=== PATIENT | male | born 2000 | race Caucasian/White ===

== ENCOUNTER 2024-06-28 17:29 | Emergency (ER) | payer OTHER, SELFPAY ==
[2024-06-28 17:37] VITALS: BP 131/75; PULSE 67; RESP 14; TEMP 36.5; O2SAT 99; BMI 18.8
--- NOTE | 2024-06-28 17:40 | ED.ABDPAIN ---
HPI - Abdominal Pain <Shefali Willoughby PA-C - Last Filed: 06/28/24 19:36> General Chief Complaint: Abdominal Pain Stated Complaint: abd px x14 days Time Seen by Provider: 06/28/24 17:40 Source: patient Mode of arrival: Ambulatory History of Present Illness HPI narrative: Rafael Leach is a pleasant 23 yo M active [employer] with a PMHx of appendectomy who presents to the ED for abdominal pain and nausea x 2.5 weeks. 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 States since then he has had occasional acid reflux, improved with antiacids. He had H Pylori testing done at an urgent care that was negative[place] but advised coming to ED if abdominal pain worsens. States his abd pain worsening today. For 2.5 weeks he had primarily epigastric abd pain worsened by eating and drinking, today he has intermittent sharp pains all over his abdomen and flanks. 2.5 weeks of constant nausea, bloating, fullness. Normal brown solid BM everyday. No vomiting, fevers, chills, dysuria, diarrhea, constipation, hematuria, cough, SOB. He was advised that the antiacids he was taking could have caused a false positive H pylori test so he has not taken any, now with continuing acid reflux and esophageal burning. No meds today. Reports allergies to naproxen, not other nsaids. 7-8 year vape history stopped 8 days ago. Social ETOH. No drugs. Related Data Previous Rx's Medication Instructions Recorded ondansetron 4 mg disintegrating 4 mg PO Q8H PRN nausea and 06/28/24 tablet vomiting #14 tabs pantoprazole 20 mg tablet,delayed 20 mg PO DAILY 4 weeks #30 tabs 06/28/24 release (Protonix) Allergies Allergy/AdvReac Type Severity Reaction Status Date / Time naproxen Allergy Verified 06/28/24 17:37 Review of Systems <Shefali Willoughby PA-C - Last Filed: 06/28/24 19:36> Review of Systems ROS Unobtainable: All systems reviewed & are unremarkable except as noted in HPI and below Patient History <Shefali Willoughby PA-C - Last Filed: 06/28/24 19:36> Social History Smoking Status: Former smoker Smoking Status: Former smoker Exam <Shefali Willoughby PA-C - Last Filed: 06/28/24 19:36> Initial Vital Signs Initial Vital Signs: Vital Signs Temperature 97.7 F 06/28/24 17:37 Pulse Rate 67 06/28/24 17:37 Respiratory Rate 14 06/28/24 17:37 Blood Pressure 131/75 06/28/24 17:37 Pulse Oximetry 99 06/28/24 17:37 Oxygen Delivery Method Room Air 06/28/24 17:37 Const General: cooperative, healthy appearing, comfortable and No acute distress HENMT Head: normal to inspection and normocephalic Eyes General: Yes appearance normal, both eyes and all related structures Neck Neck: normal visual inspection and full ROM Chest Chest: normal inspection of the chest Resp Effort & Inspection: normal respiratory effort, able to speak in complete sentences, no audible wheezes, no cough, no respiratory distress and no use of accessory muscles Cardio Rate: regular rate Rhythm: regular rhythm GI Inspection: normal to inspection Palpation: soft, No guarding and tender (epigastric region) Auscultation: normal bowel sounds Other: epigastric abd tenderness with no rebound or guarding. Prior appendectomy surgical scars. Back/Spine/Pelvis Other: No CVA tenderness Skin General: no rashes or lesions noted Neuro General: patient alert, patient awake and patient oriented x3 <Lizeth Hays MD - Last Filed: 06/28/24 21:37> Initial Vital Signs Initial Vital Signs: Vital Signs Temperature 97.7 F 06/28/24 17:37 Pulse Rate 67 06/28/24 17:37 Respiratory Rate 14 06/28/24 17:37 Blood Pressure 131/75 06/28/24 17:37 Pulse Oximetry 99 06/28/24 17:37 Oxygen Delivery Method Room Air 06/28/24 17:37 Course <Shefali Willoughby PA-C - Last Filed: 06/28/24 19:36> Orders Ordered: ED Orders 06/28/24 17:55 CT abdomen pelvis w con Stat 06/28/24 18:25 Complete Blood Count AUTO DIFF Stat Comprehensive Metabolic Panel Stat Lipase Stat Discontinued Medications Al Hydrox/Mg Hydrox/Simethicone 20 ml/ Lidocaine HCl 15 ml 0 ml PO NOW ONE Stop: 06/28/24 17:55 Last Admin: 06/28/24 19:01 Dose: 35 ml Documented By: SPF Vital Signs Vital signs: Vital Signs - 8 hr 06/28/24 17:37 06/28/24 19:34 Temperature 97.7 F 97.7 F Pulse Rate 67 53 L Respiratory Rate 14 16 Blood Pressure 131/75 126/83 Pulse Oximetry 99 100 Oxygen Delivery Method Room Air Room Air <Lizeth Hays MD - Last Filed: 06/28/24 21:37> Orders Ordered: ED Orders 06/28/24 17:55 CT abdomen pelvis w con Stat 06/28/24 18:25 Complete Blood Count AUTO DIFF Stat Comprehensive Metabolic Panel Stat Lipase Stat Discontinued Medications Al Hydrox/Mg Hydrox/Simethicone 20 ml/ Lidocaine HCl 15 ml 0 ml PO NOW ONE Stop: 06/28/24 17:55 Last Admin: 06/28/24 19:01 Dose: 35 ml Documented By: SPF Vital Signs Vital signs: Vital Signs - 8 hr 06/28/24 17:37 06/28/24 19:34 Temperature 97.7 F 97.7 F Pulse Rate 67 53 L Respiratory Rate 14 16 Blood Pressure 131/75 126/83 Pulse Oximetry 99 100 Oxygen Delivery Method Room Air Room Air MDM - Abdominal Pain <Shefali Willoughby PA-C - Last Filed: 06/28/24 19:36> Medical Records Attestation: I reviewed the patient's medical records. Lab Data 06/28/24 18:25 06/28/24 18:25 Labs: Lab Results 06/28/24 Range/Units 18:25 WBC 4.7 (4.5-11.0) X10^3/uL RBC 5.03 (4.5-5.9) X10^6/uL Hgb 15.3 (13.5-17.5) g/dL Hct 44.6 (41-53) % MCV 88.7 (80-100) fL MCH 30.5 (26-34) PG MCHC 34.3 (30-36) % RDW 13.5 (11.6-14.8) % Plt Count 200 (150-400) X10^3/uL Neut % (Auto) 56.8 (50-75) % Lymph % (Auto) 34.4 (25-40) % Elbert % (Auto) 7.3 (3-14) % Eos % (Auto) 0.9 L (2-4) % Baso % (Auto) 0.6 (0-2) % Neut # (Auto) 2700 (0905-0282) /uL Lymph # (Auto) 1600 (6342-6224) /uL Elbert # (Auto) 300 (0-900) /uL Eos # (Auto) 0 (0-450) /uL Baso # (Auto) 0 (0-100) /uL Sodium 137 (137-145) mmol/L Potassium 3.6 (3.4-5.1) mmol/L Chloride 101 (98-107) mmol/L Carbon Dioxide 30 (22-32) mmol/L BUN 20 (9-20) mg/dL Creatinine 0.97 (0.66-1.25) mg/dL Estimated GFR > 60 (>60) mL/min BUN/Creatinine Ratio 20.6 (6-22) Glucose 87 (70-100) mg/dL Calcium 10.1 (8.4-10.2) mg/dL Total Bilirubin 0.9 (0.2-1.3) mg/dL AST 26 (17-59) IU/L ALT 14 (<50) IU/L Alkaline Phosphatase 60 (38-126) U/L Total Protein 7.8 (6.3-8.2) g/dL Albumin 4.7 (3.5-5.0) g/dL Globulin 3.1 (1.7-4.1) g/dL Albumin/Globulin Ratio 1.5 (1.0-2.8) Lipase 40 (23-300) U/L Point of care testing: Urine Dip Bedside Urine Glucose Negative Bedside Urine Bilirubin - Negative Bedside Urine Ketone - Negative Urine Specific [place] 1.010 Bedside Urine Occult Blood - Negative Bedside Urine pH 7.5 Bedside Urine Protein - Negative Bedside Urine Urobilinogen - Negative Bedside Urine Nitrite - Negative Bedside Urine Leukocytes - Negative Esterase Imaging Data CT scan - abdomen/pelvis: Radiologist's Impression: PROCEDURE: CT ABDOMEN PELVIS W CON INDICATIONS: epigastric / diffuse abd pain; nausea TECHNIQUE: After the administration of intravenous contrast, axial sections acquired from the lung bases to the pubic symphysis. Coronal and sagittal reformats were performed. For radiation dose reduction, the following was used: automated exposure control, adjustment of mA and/or kV according to patient size. COMPARISON: None. FINDINGS: Image quality: Diagnostic. Lower Chest: No significant findings. ABDOMEN: Liver: No solid mass. Gallbladder: No radiopaque gallstones or wall thickening. Biliary ducts: No biliary dilation. Pancreas: No ductal dilation. Spleen: Size is within normal limits. Adrenal Glands: No adrenal nodules. Kidneys and Ureters: No hydronephrosis. No solid mass. No complex renal cystic lesion which requires follow up. Stomach and Bowel: Normal colonic caliber, without significant wall thickening. Appendectomy. Moderate colonic stool load. Peritoneum: No abnormal intraperitoneal fluid. No free air. Ventral Wall: No significant ventral hernia. Abdominal Nodes: No retroperitoneal or mesenteric adenopathy by size criteria. Vessels: Aorta and inferior vena cava are normal in size. PELVIS: Pelvic Organs: Unremarkable. Bladder: No bladder wall thickening, accounting for underdistention. Pelvic Nodes: No enlarged lymph nodes. Miscellaneous: No inguinal hernias are seen. Bones: No aggressive osseous abnormality. IMPRESSION: Moderate colonic stool load. Otherwise, no acute abnormality. Appendectomy. MDM Narrative Medical decision making narrative: 23 yo M active [employer] with a PMHx of appendectomy who presents to the ED for abdominal pain and nausea x 2.5 weeks. DDx includes but not limited to: GERD, gastritis, gastroparesis, cholelithiasis, IBS, IBD, colitis, etc. On exam pt is in NAD, nontoxic, VS WNL. Mild epigastric abd tenderness with no rebound or guarding, subjective pain throughout abd. Normal BM but nausea, bloating, and acid reflux. Sx seemed to have began after a 24 hr stomach bug in May. Will tx with GI Cocktail, check CBC CMP Lipase UA and CTAP to eval for intra-abd abnormality given duration of sx, abd tenderness, 3rd visit for this same problem worsening. CTAP reveals no acute abnormality, there is a moderate colonic stool load. Pt reports 2 BM today. Labs overall WNL. WBC 4.7. CMP completely unremarkable, normal renal fx and LFTs. UA negative for infx. Suspect GERD in addition to moderate stool load causing the bloating sensation. Prescribed protonix, zofran if needed, advised MiraLax/hydration/fiber to pass stool. Recommended f/u PCP and GI for further eval. Strict ER return precautions discussed. Abd exam improved, soft nontender no guarding. Pt verbalized understanding of all info and agreeable to the plan, he is stable for discharge home. <Lizeth Hays MD - Last Filed: 06/28/24 21:37> Lab Data Labs: Lab Results 06/28/24 Range/Units 18:25 WBC 4.7 (4.5-11.0) X10^3/uL RBC 5.03 (4.5-5.9) X10^6/uL Hgb 15.3 (13.5-17.5) g/dL Hct 44.6 (41-53) % MCV 88.7 (80-100) fL MCH 30.5 (26-34) PG MCHC 34.3 (30-36) % RDW 13.5 (11.6-14.8) % Plt Count 200 (150-400) X10^3/uL Neut % (Auto) 56.8 (50-75) % Lymph % (Auto) 34.4 (25-40) % Elbert % (Auto) 7.3 (3-14) % Eos % (Auto) 0.9 L (2-4) % Baso % (Auto) 0.6 (0-2) % Neut # (Auto) 2700 (8864-5152) /uL Lymph # (Auto) 1600 (1828-8553) /uL [place]bert # (Auto) 300 (0-900) /uL Eos # (Auto) 0 (0-450) /uL Baso # (Auto) 0 (0-100) /uL Sodium 137 (137-145) mmol/L Potassium 3.6 (3.4-5.1) mmol/L Chloride 101 (98-107) mmol/L Carbon Dioxide 30 (22-32) mmol/L BUN 20 (9-20) mg/dL Creatinine 0.97 (0.66-1.25) mg/dL Estimated GFR > 60 (>60) mL/min BUN/Creatinine Ratio 20.6 (6-22) Glucose 87 (70-100) mg/dL Calcium 10.1 (8.4-10.2) mg/dL Total Bilirubin 0.9 (0.2-1.3) mg/dL AST 26 (17-59) IU/L ALT 14 (<50) IU/L Alkaline Phosphatase 60 (38-126) U/L Total Protein 7.8 (6.3-8.2) g/dL Albumin 4.7 (3.5-5.0) g/dL Globulin 3.1 (1.7-4.1) g/dL Albumin/Globulin Ratio 1.5 (1.0-2.8) Lipase 40 (23-300) U/L Point of care testing: Urine Dip Bedside Urine Glucose Negative Bedside Urine Bilirubin - Negative Bedside Urine Ketone - Negative Urine Specific [place] 1.010 Bedside Urine Occult Blood - Negative Bedside Urine pH 7.5 Bedside Urine Protein - Negative Bedside Urine Urobilinogen - Negative Bedside Urine Nitrite - Negative Bedside Urine Leukocytes - Negative Esterase Discharge Plan Departure Patient Disposition: Home Clinical Impression: Acid reflux Qualifiers: Esophagitis presence: esophagitis presence not specified Qualified Code(s): K21.9 - Gastro-esophageal reflux disease without esophagitis Constipation Qualifiers: Constipation type: unspecified constipation type Qualified Code(s): K59.00 - Constipation, unspecified Instructions: DI for Gastroesophageal Reflux Disease (GERD), DI for Constipation Activity Restrictions/Additional Instructions: Today you were evaluated for abdominal pain, nausea, bloating, acid reflex. Your bloodwork was overall very reassuring. The CT scan of your abdomen and pelvis showed a large amount of stool in your colon, otherwise it was normal. I advise you increase water in your diet, fiber, and you may also take MiraLax daily for the next week/as needed to help pass the stool. For acid reflux, I have sent a prescription of Protonix to your pharmacy to take every morning. Please follow up with a primary care doctor for repeat evaluation. I do advise you follow up with a Gastrointestinal doctor for further management of your acid reflux and possible endoscopy. Please rest, hydrate, and return to the ER for any new or worsening symptoms such as severe pain, persistent vomiting, bloody or black stool, fevers, or other concerns. Follow up with your primary doctor for ER follow up in 2-3 days. Please read the attached paperwork, as it provides additional information. Thank you for allowing me to participate in your care, Shefali Willoughby PA-C Prescriptions: New ondansetron 4 mg tablet,disintegrating 4 mg PO Q8H PRN (Reason: nausea and vomiting) Qty: 14 0RF pantoprazole [Protonix] 20 mg tablet,delayed release (DR/EC) 20 mg PO DAILY 28 Days Qty: 30 0RF Referrals: Provider,Pedro VILLALPANDO [Primary Care Provider] - Stand Alone Forms: Patient Portal/API/Survey ED Sign-out <Lizeth Hays MD - Last Filed: 06/28/24 21:37> Cosign ED Attending Cosignature Attestation: I did not see this patient. I was available all times for consultation.
--- NOTE | 2024-06-28 17:55 | DI.CT.S_ITS ---
PROCEDURE: CT ABDOMEN PELVIS W CON INDICATIONS: epigastric / diffuse abd pain; nausea TECHNIQUE: After the administration of intravenous contrast, axial sections acquired from the lung bases to the pubic symphysis. Coronal and sagittal reformats were performed. For radiation dose reduction, the following was used: automated exposure control, adjustment of mA and/or kV according to patient size. COMPARISON: None. FINDINGS: Image quality: Diagnostic. Lower Chest: No significant findings. ABDOMEN: Liver: No solid mass. Gallbladder: No radiopaque gallstones or wall thickening. Biliary ducts: No biliary dilation. Pancreas: No ductal dilation. Spleen: Size is within normal limits. Adrenal Glands: No adrenal nodules. Kidneys and Ureters: No hydronephrosis. No solid mass. No complex renal cystic lesion which requires follow up. Stomach and Bowel: Normal colonic caliber, without significant wall thickening. Appendectomy. Moderate colonic stool load. Peritoneum: No abnormal intraperitoneal fluid. No free air. Ventral Wall: No significant ventral hernia. Abdominal Nodes: No retroperitoneal or mesenteric adenopathy by size criteria. Vessels: Aorta and inferior vena cava are normal in size. PELVIS: Pelvic Organs: Unremarkable. Bladder: No bladder wall thickening, accounting for underdistention. Pelvic Nodes: No enlarged lymph nodes. Miscellaneous: No inguinal hernias are seen. Bones: No aggressive osseous abnormality. IMPRESSION: Moderate colonic stool load. Otherwise, no acute abnormality. Appendectomy. Dictated by: Fito Bangura M.D. on 06/28/2024 at 18:43 Approved by: Fito Bangura M.D. on 06/28/2024 at 18:45
[2024-06-28 18:33] LABS: Add Manual Diff / Slide Review NO; Basophils Absolute Auto 0 /uL (0-100); Basophils Percent Auto 0.6 % (0-2); Eosinophils Absolute Auto 0 /uL (0-450); Eosinophils Percent Auto 0.9 % (2-4); Hematocrit 44.6 % (41-53); Hemoglobin 15.3 g/dL (13.5-17.5); Lymphocytes Absolute Auto 1600 /uL (1100-4500); Lymphocytes Percent Auto 34.4 % (25-40); Mean Corpuscular HGB Conc 34.3 % (30-36); Mean Corpuscular Hemoglobin 30.5 PG (26-34); Mean Corpuscular Volume 88.7 fL (80-100); Monocytes Absolute Auto 300 /uL (0-900); Monocytes Percent Auto 7.3 % (3-14); Neutrophils Absolute Auto 2700 /uL (1500-7000); Neutrophils Percent Auto 56.8 % (50-75); Platelet Count 200 X10^3/uL (150-400); Red Blood Cell Count 5.03 X10^6/uL (4.5-5.9); Red Cell Distribution Width 13.5 % (11.6-14.8); White Blood Cell Count 4.7 X10^3/uL (4.5-11.0)
[2024-06-28 18:54] LABS: Alanine Aminotransferase 14 IU/L (<50); Albumin 4.7 g/dL (3.5-5.0); Albumin Globulin Ratio 1.5 (1.0-2.8); Alkaline Phosphatase 60 U/L (38-126); Aspartate Aminotransferase 26 IU/L (17-59); BUN Creatinine Ratio 20.6 (6-22); Bilirubin Total 0.9 mg/dL (0.2-1.3); Blood Urea Nitrogen 20 mg/dL (9-20); Calcium 10.1 mg/dL (8.4-10.2); Carbon Dioxide 30 mmol/L (22-32); Chloride 101 mmol/L (98-107); Estimated Glomerular Filt Rate > 60 mL/min (>60); Globulin 3.1 g/dL (1.7-4.1); Glucose 87 mg/dL (70-100); HEMOLYSIS < 15 (0-50); Lipase 40 U/L (23-300); Potassium 3.6 mmol/L (3.4-5.1); Sodium 137 mmol/L (137-145); Total Protein 7.8 g/dL (6.3-8.2)
[2024-06-28] MEDS: MAG HYDROX/ALUMINUM/SIMETH SUS 20 ML, LIDOCAINE VISCOUS 2% 15 ML PO (19:01)
[2024-06-28 19:34] VITALS: BP 126/83; PULSE 53; RESP 16; TEMP 36.5; O2SAT 100
== END 2024-06-28 19:39 | disposition home or self-care (01) ==
PROVIDERS: Emergency Provider Physician Assistant
DX: K21.9 Gastro-esophageal reflux disease without esophagitis (principal); K59.00 Constipation, unspecified; R11.0 Nausea
CPT/HCPCS: 36415; 74177; 80053; 81003; 83690; 85025; 99283; 99284